=== PATIENT | male | born 1990 | race Caucasian/White ===

== ENCOUNTER 2024-10-18 14:07 | Emergency (ER) | payer OTHER ==
[~2024-10-18] VITALS: Ht 190.5 cm; Wt 86.2 kg
[2024-10-18 14:22] VITALS: BP 116/64; TEMP 98.7; O2SAT 100
[2024-10-18] MEDS ORDERED: TDAP [DIPH/PERTUSSIS/TET] 0.5 ML VIAL IM ONE (15:04)
[2024-10-18] MEDS: TDAP [DIPH/PERTUSSIS/TET] 0.5 ML VIAL IM ONE (15:08)
== END 2024-10-18 21:21 | disposition left against medical advice (07) ==
LOC: ER 14:15
DX: M79.671 Pain in right foot (principal)
CPT/HCPCS: 73630-TC; 90715